=== PATIENT | female | born 1990 | race Caucasian/White ===

== ENCOUNTER 2022-04-17 20:29 | Emergency (ER) | payer SELFPAY ==
[~2022-04-17] VITALS: Ht 165.1 cm; Wt 59.0 kg
[2022-04-17 21:18] LABS: EOSINOPHILS % 0.6 % (0.0-5.0); HEMATOCRIT. 42.2 % (36.0-48.0); HEMOGLOBIN. 14.6 g/dL (12.0-16.0); LYMPHOCYTES % 34.3 % (20.0-50.0); MEAN CORPUSCULAR HEMOGLOBIN 32.2 pg (28.0-32.0); MEAN CORPUSCULAR VOLUME 93.3 fL (81.0-99.0); NEUTROPHILS % 56.1 % (40.0-76.0); PLATELET 312 x1000/uL (130-400); RED BLOOD CELL COUNT 4.53 mill/uL (4.2-5.4); RED CELL DISTRIBUTION WIDTH 12.7 % (11.6-14.6)
[2022-04-17 21:24] LABS: CHLORIDE 112 mEq/L (98-107)
[2022-04-17 21:26] LABS: HCG SCREEN NEGATIVE
[2022-04-17 21:43] LABS: ETHANOL BLOOD 394 mg/dL
[2022-04-18 03:20] VITALS: BP 147/88
== END 2022-04-18 05:58 | disposition home or self-care (01) ==
LOC: ER 20:29
DX: T51.0X1A Toxic effect of ethanol, accidental (unintentional), initial encounter (principal); X58.XXXA Exposure to other specified factors, initial encounter; R56.9 Unspecified convulsions
CPT/HCPCS: 36415; 80053; 80320; 84703; 85025; 93005; 99284; G0480